=== PATIENT | male | born 2005 | race Caucasian/White ===

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

== ENCOUNTER 2023-03-14 19:31 | Emergency (ER) | payer MEDICAID, SELFPAY ==
--- NOTE | 2023-03-14 19:32 | ECG_ITS ---
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 Measurements Intervals [place] Rate: 101 P: 60 IN: 197 QRS: -35 QRSD: 97 T: 22 QT: 316 QTc: 411 Interpretive Statements SINUS TACHYCARDIA LEFT AXIS DEVIATION [QRS AXIS < -30] S1-S2-S3 PATTERN, CONSISTENT WITH PULMONARY DISEASE, RVH, OR NORMAL VARIANT No previous ECG available for comparison Electronically Signed On 03-16-2023 14:08:56 HANG GLIDING INSTRUCTOR by Simba Turner M.D. [email or web address]
--- NOTE | 2023-03-14 19:34 | XRR_ITS ---
PROCEDURE INFORMATION: Exam: XR Chest Exam date and time: 03/14/2023 8:05 PM Age: 18 years old Clinical indication: Chest wall pain; Additional info: Cp TECHNIQUE: Imaging protocol: Radiologic exam of the chest. Views: 1 view. COMPARISON: CT abdomen pelvis con [id number] 03/29/2021 2:52 PM FINDINGS: Lungs: Unremarkable. No consolidation. Pleural spaces: Unremarkable. No pleural effusion. No pneumothorax. Heart/Mediastinum: Unremarkable. No cardiomegaly. Bones/joints: Unremarkable. XR/XR chest 1V portable [id number] IMPRESSION: No acute findings.
--- NOTE | 2023-03-14 19:36 | W.ED.CHESTPA ---
HPI - Chest Pain General: Chief Complaint: Chest Pain Stated Complaint: CP Time Seen by Provider: 03/14/23 19:32 Source: patient and EMS Mode of arrival: EMS Limitations: no limitations History of Present Illness: 18-year-old male states he smoked an unknown substance that for 30 he thought it may have been marijuana but is not sure he states that shortly after he started feeling very anxious here he is anxious he states that he is having chest pains along with pain in his neck. He rates his pain a 5 out of 10 he has some mild dyspnea. He is in no distress here. Associated symptoms: Deny abdominal pain, dyspnea, fever(s), nausea or vomiting Review of Systems Const: Denies: fever(s), chills, body aches or change in appetite ENMT: Denies: throat pain or dental pain Card: Reports: chest pain Resp: Denies: dyspnea GI: Denies: abdominal pain, nausea, vomiting or diarrhea : Denies: dysuria Musc: Denies: neck pain or back pain Skin/Breast: Denies: rash Neuro: Denies: headache(s) Psych: Reports: anxiety PFSH ED PFSH: Medical History Chronic schizophrenia Chronic tonsillitis Depression, major, severe recurrence Deviated septum Extrapyramidal and movement disorder Lower urinary tract symptoms (LUTS) Noncompliance w/medication treatment due to intermit use of medication Prostatitis Psychiatric care Recurrent acute tonsillitis Tonsillar hypertrophy Family History Father Hypertension Psychiatric illness Mother No problems noted. Social History Smoking and tobacco/nicotine status: never used tobacco/nicotine Alcohol intake: never Substance/Drug Use: never Marital status: Single Current occupational status: unemployed Physical Exam Const: COMMON NORMALS: no acute distress, patient oriented x3 and healthy appearing GENERAL APPEARANCE: anxious HENMT: COMMON NORMALS: normocephalic and atraumatic HEAD & SCALP: normocephalic and atraumatic Neck/C-Spine: COMMON NORMALS: full ROM and supple Chest: COMMONS NORMALS: normal inspection of the chest and normal palpation of entire chest wall Resp: COMMON NORMALS: normal respiratory effort, No retractions, No use of accessory muscles and clear to auscultation bilaterally AUSCULTATION: clear to auscultation bilaterally Cardio: COMMON NORMALS: regular rate, regular rhythm and No murmurs present (Cardio) RATE: regular rate RHYTHM: regular rhythm GI: COMMON NORMALS: Normal to inspection, nondistended, normoactive bowel sounds present, Soft to palpation, non-tender and no masses PALPATION: Yes Soft to palpation Extremity: COMMON NORMALS: normal to inspection and full ROM Neuro: COMMON NORMALS: patient oriented x3, moves all extremities and no focal motor deficits Psych: COMMON NORMALS: mental status grossly normal, Normal thought process present and cooperative THOUGHT PROCESS: Normal thought process present Skin: COMMON NORMALS: no rashes or lesions noted and no wounds GENERAL SKIN EXAM: no rashes or lesions noted Course Vital Signs: Vital signs: Vital Signs Temperature 99.0 F 03/14/23 19:43 Pulse Rate 97 03/14/23 21:28 Respiratory Rate 20 H 03/14/23 21:28 Blood Pressure 147/100 03/14/23 21:28 Pulse Oximetry 91 03/14/23 21:28 Oxygen Delivery Me thod Room Air 03/14/23 20:27 MDM - Chest Pain Medical Decision Making Patient presents here with chest pain along with anxiety likely from smoking marijuana he feels much improved his blood work here is all normal he is stable for discharge. Medical Records I reviewed the patient's medical records. Lab Data I reviewed the patient's lab results. 03/14/23 20:19 03/14/23 20:19 Radiology Impressions Chest X-Ray 03/14/23 19:34 IMPRESSION: No acute findings. Laboratory Results WBC 11.39 10^3/uL (4.5-13.0) 03/14/23 20:19 RBC 5.14 10^6/uL (3.85-5.65) 03/14/23 20:19 Hgb 14.60 g/dL (13.2-15.6) 03/14/23 20:19 Hct 45.6 % (37-53) 03/14/23 20:19 MCV 88.7 fl (82-101) 03/14/23 20:19 MCH 28.4 pg (27-33) 03/14/23 20:19 MCHC 32.0 g/dL (30-55) 03/14/23 20:19 RDW 14.0 % (12.1-15.1) 03/14/23 20:19 Plt Count 268 10^3/cmm (157-399) 03/14/23 20:19 MPV 10.9 fL (7.4-10.4) H 03/14/23 20:19 Neut % (Auto) 79.9 % 03/14/23 20:19 Lymph % (Auto) 13.5 % 03/14/23 20:19 Clarke % (Auto) 6.0 % 03/14/23 20:19 Eos % (Auto) 0.0 % 03/14/23 20:19 Baso % (Auto) 0.2 % 03/14/23 20:19 Neut # (Auto) 9.11 10^3/uL (1.8-8.0) H 03/14/23 20:19 Lymph # (Auto) 1.5 10^3/uL (1.5-6.5) 03/14/23 20:19 Clarke # (Auto) 0.7 10^3/uL (0.2-0.9) 03/14/23 20:19 Eos # (Auto) 0.0 10^3/uL (0.0-0.8) 03/14/23 20:19 Baso # (Auto) 0.0 10^3/uL (0.0-0.1) 03/14/23 20:19 Nucleated RBC % (auto) 0 % 03/14/23 20:19 Nucleated RBCs # 0.0 /100WBC 03/14/23 20:19 Sodium 140 mmol/L (136-145) 03/14/23 20:19 Potassium 3.8 mmol/L (3.5-5.1) 03/14/23 20:19 Chloride 104 mmol/L (98-107) 03/14/23 20:19 Carbon Dioxide 23 mmol/L (22-29) 03/14/23 20:19 Anion Gap 16.8 (5-19) 03/14/23 20:19 BUN 11 mg/dL (6-20) 03/14/23 20:19 Creatinine 0.8 mg/dL (0.7-1.2) 03/14/23 20:19 GFR Calculation 123.2 mL/min (90-130) 03/14/23 20: Glucose 107 mg/dL (65-115) 03/14/23 20:19 Calculated Osmolality 290 mOsm/kg (285-295) 03/14/23 20: Calcium 9.7 mg/dL (8.5-10.5) 03/14/23 20: Total Bilirubin 0.4 mg/dL (0.15-1.2) 03/14/23 20: AST 12 U/L (0-40) 03/14/23 20: ALT 15 U/L (0-41) 03/14/23 20:19 Alkaline Phosphatase 95 U/L (40-130) 03/14/23 20: Total Protein 6.7 g/dL (6.6-8.7) 03/14/23 20: Albumin 4.5 g/dL (3.5-5.2) 03/14/23 20: Globulin 2.2 g/dL (1.3-4.6) 03/14/23 20: Salicylates < 0.3 mg/dL (3-10) L 03/14/23 20:19 Urine Opiates Screen Negative ng/mL (Negative) 03/14/23 20: Acetaminophen < 5.0 ug/mL (10-30) L 03/14/23 20: Ur Barbiturates Screen Negative ng/mL (Negative) 03/14/23 20: Ur Phencyclidine Scrn Negative ng/mL (Negative) 03/14/23 20: Ur Amphetamines Screen Negative ng/mL (Negative) 03/14/23: U Benzodiazepines Scrn Negative ng/mL (Negative) 03/14/23 20: Urine Cocaine Screen Negative ng/mL (Negative) 03/14/23 20: U Marijuana (THC) Screen Positive ng/mL (Negative) H 03/14/23: Ethyl Alcohol < 10 mg/dL (0-10) 03/14/23: All radiology interpretation(s) finalized by discharge Discharge Plan Discharge Patient Disposition: Home Clinical Impression: Chest pain, Marijuana abuse Condition: Stable Prescriptions: No Action lisinopril 10 mg tablet 10 mg PO DAILY omega-3 fatty acids 500 mg capsule 500 mg PO DAILY melatonin 10 mg capsule 10 mg PO DAILY cholecalciferol (vitamin D3) 50 mcg (2,000 unit) tablet 50 mcg PO DAILY sulfamethoxazole-trimethoprim 800-160 mg tablet See Rx Instructions .ROUTE .COMPLEX Qty: 60 4RF Dose Instruction: TAKE 1 TABLET BY MOUTH TWICE A DAY Rx Instructions: TAKE 1 TABLET BY MOUTH TWICE A DAY benztropine 1 mg tablet 1 mg PO BID PRN (Reason: abnormal movement) Qty: 60 0RF olanzapine 20 mg tablet 20 mg PO BEDTIME 30 Days Qty: 30 0RF escitalopram oxalate 20 mg tablet See Rx Instructions .ROUTE .COMPLEX Qty: 30 0RF Dose Instruction: TAKE 1 TABLET BY MOUTH DAILY Rx Instructions: TAKE 1 TABLET BY MOUTH DAILY Discharge Orders: Discharge ED (Routine); Ordered 03/14/23 Ordered By: Rere Medina Referrals: Apoorva Larson FNP [Primary Care Provider] - Discharge Diet: Advance as tolerated Discharge Activity: Resume usual activity Patient Instructions: Marijuana Abuse, Chest Pain (ED) Coding Level of Care Code ED Molded Goods Inspector Trimmer for Kareem Nelson
[2023-03-14 19:40] VITALS: BMI 35.5
[2023-03-14 19:43] VITALS: BP 139/103; PULSE 100; RESP 33; TEMP 37.2; O2SAT 94
[2023-03-14] MEDS: LORazepam 2 mg/mL INJ 1 mL 1 MG IV (19:50)
[2023-03-14 20:27] VITALS: BP 140/87; PULSE 114; RESP 21; O2SAT 97
[2023-03-14 20:31] LABS: Basophils % 0.2 %; Hematocrit 45.6 % (37-53); Lymphocytes # 1.5 10^3/uL (1.5-6.5); Lymphocytes % 13.5 %; Mean Corpuscular Hemoglobin 28.4 pg (27-33); Mean Corpuscular Volume 88.7 fl (82-101); Mean Platelet Volume 10.9 fL (7.4-10.4); Monocytes # 0.7 10^3/uL (0.2-0.9); Neutrophils # 9.11 10^3/uL (1.8-8.0); Neutrophils % 79.9 %; Nucleated Red Blood Cells % 0 %; Platelet Count 268 10^3/cmm (157-399); Red Blood Count 5.14 10^6/uL (3.85-5.65); White Blood Count 11.39 10^3/uL (4.5-13.0)
[2023-03-14 20:40] LABS: Amphetamines Screen Urine Negative (Negative); Barbiturates Screen Urine Negative (Negative); Benzodiazepines Screen Urine Negative (Negative); Cocaine Screen Urine Negative (Negative); PCP Screen Urine Negative (Negative); THC Screen Urine Positive (Negative)
[2023-03-14 20:53] LABS: Opiate Screen Urine Negative (Negative)
[2023-03-14 20:54] LABS: Alanine Aminotransferase 15 U/L (0-41); Albumin Level 4.5 g/dL (3.5-5.2); Alkaline Phosphatase 95 U/L (40-130); Anion Gap 16.8 (5-19); Aspartate Amino Transferase 12 U/L (0-40); Blood Urea Nitrogen 11 mg/dL (6-20); Calcium 9.7 mg/dL (8.5-10.5); Carbon Dioxide 23 mmol/L (22-29); Chloride 104 mmol/L (98-107); Globulin 2.2 g/dL (1.3-4.6); Glomerular Filtration Rate 123.2 mL/min (90-130); Glucose 107 mg/dL (65-115); Osmolality Calculated 290 mOsm/kg (285-295); Potassium 3.8 mmol/L (3.5-5.1); Sodium 140 mmol/L (136-145); Total Bilirubin 0.4 mg/dL (0.15-1.2); Total Protein 6.7 g/dL (6.6-8.7)
[2023-03-14 20:55] LABS: Acetaminophen < 5.0 ug/mL (10-30); Alcohol Level < 10 mg/dL (0-10); Salicylate < 0.3 mg/dL (3-10)
[2023-03-14 21:28] VITALS: BP 147/100; PULSE 97; RESP 20; O2SAT 91
== END 2023-03-14 21:29 | disposition home or self-care (01) ==
PROVIDERS: Emergency Provider Emergency Medicine; PCP Nurse Practitioner Family
DX: R07.9 Chest pain, unspecified (principal); F12.10 Cannabis abuse, uncomplicated
CPT/HCPCS: 36415; 71045; 80053; 80306; 80307; 85025; 93005; 96374; 99285; J2060

== ENCOUNTER 2024-11-17 19:12 | Emergency (ER) | payer MEDICAID, SELFPAY ==
--- OUTSIDE RECORDS SUMMARY | 2019-04-04 05:17 | XMS_ITS | Continuity of Care Document ---
Author Organization [facility] Address [address] [id number] [address] Phone Care Team Providers Care Identifier Horse Name Role Phone Unavailable Unavailable Unavailable Allergies, Adverse Reactions, Alerts Substance Reaction Status Criticality No Known Allergies Active No Inform ation Procedures Procedure Date Vision svcs frames purchases Spherocylindr 4.00d/12-2.00d Spherocylindr 4.00d/12-2.00d Lens polycarb or equal, Single Vision, P er Lens Lens polycarb or equal, Single Vision, P er Lens FITTING OF SPECTACLES REFRACTION Eye Exam New Patient Advance Directives Directive Yes / No Effective Date File Name No Information Encounters Encounter Description Practice Location Reason(s) For Visit Diagnoses Date Provider Providers Copied on Encounter [facility], [id number] [place], [place], [id number], [place] tel:[phone] Vision F1 Encounter for fit/adjst of spectacles and contact lenses 9 No Information [facility], [id number], [id number], [place] tel:[phone] Vision F1 blurry vision (chief complaint) Myopia, bilateralRegular astigmatism, bilateralConverge nce insufficiency 9 No Information Family History Family Member Type Diagnosis Age At Onset No Information Payers Payer name Insurance type Covered democrat ID Authoriza tion(s) V June Vision CI [id number] Social History Type Description Quantity Date Captured Comments Sex Male Smoking Status No Information Chief Complaint And Reason For Visit No Information Reason For Referral Reason For Referral No Information History Of Present Illness Encounter Date Complaint History Of Prese nt Illness blurry vision last eye exam urszula ybe 1-2 years ago. Pt had glasses but lost them. Not sure how long they have been gone maybe a year. Pt states he has trouble with distance and up close. no headaches. Functional Status Date Functional Assessmen t No Information Instructions Date Instruction Additional Infor olaf Impression/Plan Assessments Type Assessment Date No Information Patient Care Teams Name Effective Dates (start - stop) Status Members No Information
[2024-11-17 19:26] VITALS: BP 136/85; PULSE 76; RESP 14; TEMP 36.9; O2SAT 98
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
[2024-11-17 20:30] VITALS: BP 124/78; PULSE 68; RESP 16; O2SAT 98
== END 2024-11-17 20:31 | disposition home or self-care (01) ==
PROVIDERS: Emergency Provider Emergency Medicine
DX: S00.83XA Contusion of other part of head, initial encounter (principal); Y04.2XXA Assault by strike against or bumped into by another person, initial encounter
CPT/HCPCS: 70486; 72125; 99284; J9999